=== PATIENT | female | born 1995 | race Caucasian/White ===

== ENCOUNTER 2016-02-18 18:37 | Emergency (ER) | payer OTHER ==
[2016-02-18] MEDS ORDERED: ACETAMINOPHEN TAB 500 MG TAB PO STA (19:07)
[2016-02-18] MEDS ORDERED: METOCLOPRAMIDE 5 MG/ML 2 ML VIAL IVP STA (19:08)
[2016-02-18] MEDS ORDERED: SODIUM CHLORIDE 0.9% 1,000 ML IV ONE (19:08)
--- NOTE | 2016-02-18 19:09 | ED ---
General Adult HPI - General Chief complaint: Abdominal Pain Stated complaint: , ABDOMINAL PAIN, BLEEDING Time Seen by Provider: 02/18/16 18:53 Source: patient, RN notes reviewed Mode of arrival: ambulatory Limitations: no limitations - History of Present Illness Initial comments: Patient is a 20-year-old female presents emergency room for evaluation of vaginal bleeding. Patient recently found out she was . Patient states she hasn't followed up with REFERENCE LIBRARIAN yet. Patient states last night she began lightly spotting which continued into this morning. Patient states about an hour ago a large amount of blood was found in her underwear. Patient states also been developing lower abdominal cramping. Patient denies taking anything for her symptoms. Patient denies shortness of breath, headache or dizziness. Patient states she is nauseous but denies any vomiting. Patient denies any previous pregnancies. Patient states she is afraid she's having a miscarriage. - Related Data Home Medications Medication Instructions Recorded Confirmed Anti-Nausea(Unknown Otc) 1 dose PO DAILY PRN 02/06/16 02/18/16 Previous Rx's Medication Instructions Recorded Metoclopramide HCl [Reglan] 5 mg PO BID PRN #12 tablet 02/06/16 Qdb-Lqla-Yrtgp Acid 1 each PO DAILY #100 cap 02/06/16 [-U Capsule] Allergies Allergy/AdvReac Type Severity Reaction Status Date / Time cephalexin [From Keflex] Allergy Unknown Verified 02/06/16 10:05 Review of Systems ROS Statement: Those systems with pertinent positive or pertinent negative responses have been documented in the HPI. ROS Other: All systems not noted in ROS Statement are negative. Past Medical History Past Medical History: No Reported History History of Any Multi-Drug Resistant Organisms: None Reported Past Surgical History: Ear Surgery, Tonsillectomy Past Psychological History: No Psychological Hx Reported Smoking Status: Never smoker Past Alcohol Use History: None Reported Past Drug Use History: None Reported General Exam - General Exam Comments Initial Comments: Sitting in exam room, no acute distress. Limitations: no limitations General appearance: alert, in no apparent distress Head exam: Present: atraumatic, normocephalic, normal inspection Eye exam: Present: normal appearance ENT exam: Present: normal exam Neck exam: Present: normal inspection Respiratory exam: Present: normal lung sounds bilaterally. Absent: respiratory distress Cardiovascular Exam: Present: regular rate, normal rhythm, normal heart sounds GI/Abdominal exam: Present: soft, normal bowel sounds. Absent: distended, tenderness, guarding, rebound, rigid External exam: Present: normal external exam Speculum exam: Present: vaginal bleeding (Significant amount of vaginal bleeding and a large amount of blood clots). Absent: normal speculum exam Extremities exam: Present: normal inspection Back exam: Present: normal inspection Neurological exam: Present: alert, oriented X3, CN II-XII intact, normal gait Psychiatric exam: Present: normal affect, normal mood Skin exam: Present: warm, dry, intact, normal color. Absent: rash Course Vital Signs 02/18/16 02/18/16 02/18/16 18:45 20:00 21:51 Temperature 97.2 F L Pulse Rate 61 81 78 Respiratory 20 16 16 Rate Blood Pressure 158/94 166/75 154/78 O2 Sat by Pulse 100 97 97 Oximetry 02/18/16 22:05 Temperature 98 F Pulse Rate 81 Respiratory 18 Rate Blood Pressure 155/78 O2 Sat by Pulse 98 Oximetry Medical Decision Making - Medical Decision Making Patient is a 20-year-old female since emergency room for evaluation of vaginal bleeding. Patient's serum beta hCG has decreased since last visit. Ultrasound showed no sign of pole. It was discussed with patient that she is most likely having a miscarriage. Patient states she will follow-up with REFERENCE LIBRARIAN tomorrow. Patient states she understands everything that was discussed with her. Return parameters discussed. Case discussed with Dr. Castro. - Lab Data Lab Results 02/18/16 02/18/16 02/18/16 Range/Units 19:15 19:15 21:27 HCG, Quant 686.8 mIU/mL Urine Color Red Urine Appearance Bloody H (Clear) Urine RBC >182 H (0-5) /hpf Urine WBC >182 H (0-5) /hpf Ur Squamous Epith Cells 3 (0-4) /hpf Urine Bacteria Rare H (None) /hpf Trichomonas Ag (Rapid) (Negative) Blood Type A Positive Blood Type Recheck No 02/18/16 Range/Units 21:27 HCG, Quant mIU/mL Urine Color Urine Appearance (Clear) Urine RBC (0-5) /hpf Urine WBC (0-5) /hpf Ur Squamous Epith Cells (0-4) /hpf Urine Bacteria (None) /hpf Trichomonas Ag (Rapid) Negative (Negative) Blood Type Blood Type Recheck - Radiology Data Radiology results: report reviewed, image reviewed Disposition Clinical Impression: Threatened Disposition: HOME SELF-CARE Condition: Good Instructions: Threatened Miscarriage (ED) Additional Instructions: Refrain from sexual intercourse or heavy lifting for the next 7-10 days. Take Tylenol or Motrin as needed for pain. Please follow-up with REFERENCE LIBRARIAN for reevaluation in 24-48 hours. If any new symptom arises, symptoms worsen or fever develops, return to ER as soon as possible. Referrals: Barrett Gresham DO [Primary Care Provider] - 1-2 days Keron Keane DO [Doctor of Osteopathic Medicine] - 1-2 days Time of Disposition: 21:52
[2016-02-18 19:43] LABS: Bacteria,Urine Rare /hpf; Particle Count 8140; RBC,Urine >182 /hpf (0-5); Squamous Epithelial Cell,Urine 3 /hpf (0-4); WBC,Urine >182 /hpf (0-5)
[2016-02-18 19:44] LABS: Appearance,Urine Bloody (Clear); UA Billing (MACRO vs. MICRO) MICRO
--- NOTE | 2016-02-18 21:26 | US ---
EXAMINATION TYPE: US OB <=14 wks transvag DATE OF EXAM: 02/18/2016 9:03 PM COMPARISON: NONE CLINICAL HISTORY: Heavy bleeding, pain, G1. EXAM PERFORMED: Transabdominal (TA) EXAM MEASUREMENTS: GESTATIONAL AGE / DATING Dates by LMP: (13 weeks/6 days) EDC: 08/19/2016 Dates by Current Scan: unable to determine MATERNAL ANATOMY Uterus: 10.0 x 6.1 x 5.5 cm Right Ovary: 3.2 x 2.4 x 1.8 cm Left Ovary: 2.6 x 1.6 x 1.6 cm Post CDS / Adnexa: free fluid Presence of free fluid: within endometrial and cervical canal GESTATION / SURVEY CRL: not seen MSD: not seen Yolk Sac (normal less than 6mm): not seen Heart Rate: CRL not seen IUP: No IUP seen at this time Date of LMP: 11/13/2015 Beta HcG (if available): not availble TECHNOLOGIST IMPRESSION: Anteflexed uterus, thickened endometrium with fluid and debris. No GS, CRL or YS seen. Fluid in cervical canal. Fluid in posterior cul de sac. IMPRESSION: There is thickened endometrium with some complex echoes consistent with incomplete . No adnex al mass.
[2016-02-18 22:08] VITALS: BP 155/78; PULSE 81; RESP 18; TEMP 98
== END 2016-02-18 22:08 | disposition home or self-care (01) ==
LOC: EC 18:37
DX: O20.0 Threatened abortion (principal); Z88.1 Allergy status to other antibiotic agents; Z3A.01 Less than 8 weeks gestation of pregnancy
CPT/HCPCS: 99284; 96374; 36415; 86900; 86901; 87591; 87491; 81001; 84702; 87808; 87070; 76801; J2765; 87205

== ENCOUNTER 2016-10-04 13:02 | Emergency (ER) | payer OTHER ==
[2016-10-04 13:12] VITALS: TEMP 98
[2016-10-04] MEDS ORDERED: METOCLOPRAMIDE 5 MG/ML 2 ML VIAL IVP STA (14:51)
[2016-10-04] MEDS ORDERED: SODIUM CHLORIDE 0.9% 1,000 ML IV STA (14:51)
--- NOTE | 2016-10-04 15:02 | ED ---
General Adult HPI - General Chief complaint: Syncope Stated complaint: Poss preg-syncope Time Seen by Provider: 10/04/16 14:37 Source: patient, family, RN notes reviewed Mode of arrival: ambulatory Limitations: no limitations - History of Present Illness Initial comments: Chief complaint and history of present illness this is a 21-year-old female who is approximately 10 weeks . Last menstrual cycles early July. The patient was at work which didn't feel well has syncopal episode. Denies hurting herself. She has been having nausea vomiting through the morning with this . Significant other also reports that she has near similar episode one week ago. Vomiting while kneeling at the toilet and then she seemingly passed out during this time without hurting herself. Otherwise patient denies any bleeding. She does appear pale. At this time the patient's alert and oriented. No complaints of any headache or stiff neck or neck pain. - Related Data Previous Rx's Medication Instructions Recorded Metoclopramide HCl [Reglan] 5 mg PO Q8H #5 tablet 10/04/16 Shn-Ndxj-Yrzjc Acid 1 cap PO DAILY #30 cap 10/04/16 [-U Capsule (formulary)] Allergies Allergy/AdvReac Type Severity Reaction Status Date / Time cephalexin [From Keflex] Allergy Unknown Verified 10/04/16 15:12 Review of Systems ROS Statement: Those systems with pertinent positive or pertinent negative responses have been documented in the HPI. Review of systems no visual acuity changes no headache no neck ache no chest pain she does complain of being nauseated but no vomiting at this time. No abdominal pain no back pain. No complaint of a neuro deficits. All systems are reviewed. Past medical problems significant for 1 previous miscarriage. The patient is currently approximately 10 weeks along. Patient denies any significant medical problems other than having nausea vomiting with pregnancies. Her surgeries include ear surgery ear tubes, tonsils and adenoids. Family history includes cancers, lung ovarian and breast. Patient has ALLERGIES to cephalexin. Denies smoking denies drinking. ROS Other: All systems not noted in ROS Statement are negative. Past Medical History Past Medical History: No Reported History History of Any Multi-Drug Resistant Organisms: None Reported Past Surgical History: Ear Surgery, Tonsillectomy Past Psychological History: No Psychological Hx Reported Smoking Status: Never smoker Past Alcohol Use History: None Reported Past Drug Use History: None Reported General Exam - General Exam Comments Initial Comments: General: The patient is awake and alert, in no distress, and does not appear acutely ill. Has syncopal episode at work. No seizure activity noted per witnesses. Vital signs temp 98.0 pulse 63 respiratory rate 20 pulse ox on percent room air blood pressure 118/82 Eye: Pupils are equal, round and reactive to light, extra-ocular movements are intact ; there is normal conjunctiva bilaterally. No signs of icterus. Ears, nose, mouth and throat: There are moist mucous membranes and no oral lesions. Neck: The neck is supple, there is no tenderness . Cardiovascular: There is a regular rate and rhythm. No murmur, rub or gallop is appreciated. Respiratory: Lungs are clear to auscultation, respirations are non-labored, breath sounds are equal. No wheezes, stridor, rales, or rhonchi. Gastrointestinal: Soft, non-distended, non-tender abdomen without masses or organomegaly noted. There is no rebound or guarding present. No CVA tenderness. Bowel sounds are unremarkable. Back: There is no tenderness to palpation in the midline. There is no obvious deformity. No rashes noted. Musculoskeletal: Normal ROM, no tenderness, There is no pedal edema. There is no calf tenderness or swelling. Sensation intact. Pulses equal bilaterally 2+. Neurological: CN II-XII intact, There are no obvious motor or sensory deficits. Coordination appears grossly intact. Speech is normal. No focal or lateralizing findings. Skin: Skin is warm and dry and no rashes or lesions are noted. Psychiatric: No complaint of depression. Limitations: no limitations Course Vital Signs 10/04/16 10/04/16 10/04/16 13:09 15:16 16:15 Temperature 98.0 F Pulse Rate 63 59 L 72 Respiratory 20 18 18 Rate Blood Pressure 118/82 130/85 121/58 O2 Sat by Pulse 100 100 100 Oximetry Medical Decision Making - Medical Decision Making Decision-making. The patient's white count is 12.2 hemoglobin 11.7 hematocrit of 36. Potassium is 4.1 BUN 11 creatinine 0.65 and GFR greater than 60. Glucose 75. Troponin less than 0.012. After 1 L of fluid the patient reports she is feeling much better colors better. Vital signs remained stable. The patient is not having any vaginal discharge or cramping. 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 Advised use Tylenol for discomfort. She does not drive visit is but she was reminded that no driving for 6 months after syncopal episode provided she gets cleared by her doctor. - Lab Data Result diagrams: 10/04/16 15:10 10/04/16 15:10 Lab Results 10/04/16 10/04/16 10/04/16 Range/Units 15:10 15:10 15:10 WBC 12.3 H (3.8-10.6) k/uL RBC 4.42 (3.80-5.40) m/uL Hgb 11.7 (11.4-16.0) gm/dL Hct 36.7 (34.0-46.0) % MCV 82.9 (80.0-100.0) fL MCH 26.4 (25.0-35.0) pg MCHC 31.8 (31.0-37.0) g/dL RDW 16.5 H (11.5-15.5) % Plt Count 225 (150-450) k/uL Neutrophils % 89 % Lymphocytes % 7 % Monocytes % 3 % Eosinophils % 0 % Basophils % 0 % Neutrophils # 10.9 H (1.3-7.7) k/uL Lymphocytes # 0.9 L (1.0-4.8) k/uL Monocytes # 0.3 (0-1.0) k/uL Eosinophils # 0.1 (0-0.7) k/uL Basophils # 0.0 (0-0.2) k/uL Anisocytosis Slight Sodium 134 L (137-145) mmol/L Potassium 4.1 (3.5-5.1) mmol/L Chloride 102 (98-107) mmol/L Carbon Dioxide 22 (22-30) mmol/L Anion Gap 10 mmol/L BUN 11 (7-17) mg/dL Creatinine 0.65 (0.52-1.04) mg/dL Est GFR (MDRD) Af Amer >60 (>60 ml/min/1.73 sqM) Est GFR (MDRD) Non-Af >60 (>60 ml/min/1.73 sqM) Glucose 75 (74-99) mg/dL Calcium 9.3 (8.4-10.2) mg/dL Total Bilirubin 0.4 (0.2-1.3) mg/dL AST 18 (14-36) U/L ALT 27 (9-52) U/L Alkaline Phosphatase 48 (38-126) U/L Troponin I <0.012 (0.000-0.034) ng/mL Total Protein 7.2 (6.3-8.2) g/dL Albumin 4.1 (3.5-5.0) g/dL Disposition Clinical Impression: Syncope Disposition: HOME SELF-CARE Condition: Fair Instructions: Hyperemesis Gravidarum (ED), Syncope (ED) Additional Instructions: Increase fluids, take Reglan for nausea. Follow-up with the ADMINISTRATIVE UNDERWRITER. Return emergency room if he have any lower abdominal cramping or vaginal bleeding. Prescriptions: Metoclopramide HCl [Reglan] 5 mg PO Q8H #5 tablet Ycg-Ahkg-Wxfgy Acid [-U Capsule (formulary)] 1 cap PO DAILY # 30 cap Referrals: None,Stated [Primary Care Provider] - 1-2 days Time of Disposition: 17:16
[2016-10-04 15:20] VITALS: RESP 18
[2016-10-04 15:22] LABS: Anisocytosis Slight; Basophils % (A) 0 %; CH 27.3; CHCM 33.1; Eosinophils # (A) 0.1 k/uL (0-0.7); Eosinophils % (A) 0 %; HCT 36.7 % (34.0-46.0); HDW 2.57; HGB 11.7 gm/dL (11.4-16.0); Luc # (Auto) 0.07; Luc % (Auto) 1; Lymphocytes # (A) 0.9 k/uL (1.0-4.8); Lymphocytes % (A) 7 %; MCH 26.4 pg (25.0-35.0); MCHC 31.8 g/dL (31.0-37.0); MCV 82.9 fL (80.0-100.0); Mean Platelet Volume 8.2; Monocytes # (A) 0.3 k/uL (0-1.0); Monocytes % (A) 3 %; Neutrophils # (A) 10.9 k/uL (1.3-7.7); Neutrophils % (A) 89 %; RBC 4.42 m/uL (3.80-5.40); RDW 16.5 % (11.5-15.5); WBC 12.3 k/uL (3.8-10.6); WBC (Perox) 12.39
[2016-10-04 15:44] LABS: ALT 27 U/L (9-52); AST 18 U/L (14-36); Alkaline Phosphatase 48 U/L (38-126); Anion Gap 10 mmol/L; Blood Urea Nitrogen 11 mg/dL (7-17); Calcium 9.3 mg/dL (8.4-10.2); Carbon Dioxide 22 mmol/L (22-30); Chloride 102 mmol/L (98-107); Glucose 75 mg/dL (74-99); Non-African American GFR(MDRD) >60 (>60 ml/min/1.73 sqM); Potassium 4.1 mmol/L (3.5-5.1); Sodium 134 mmol/L (137-145); Total Bilirubin 0.4 mg/dL (0.2-1.3); Total Protein 7.2 g/dL (6.3-8.2)
[2016-10-04 17:32] VITALS: BP 131/67; PULSE 73
== END 2016-10-04 17:31 | disposition home or self-care (01) ==
LOC: EC 13:02
DX: O99.89 Other specified diseases and conditions complicating pregnancy, childbirth and the puerperium (principal); R55 Syncope and collapse; O21.0 Mild hyperemesis gravidarum; Z3A.10 10 weeks gestation of pregnancy; Z88.1 Allergy status to other antibiotic agents
CPT/HCPCS: 36415; 80053; 84484; 85025; 99284; 96374; 96361 ×2; J2765

== ENCOUNTER 2017-04-29 12:04 | Inpatient (IN) | payer MEDICAID, OTHER ==
[2017-04-29] MEDS ORDERED: TERBUTALINE 1 MG/ML VIAL SQ PRN (12:17)
[2017-04-29] MEDS ORDERED: LIDOCAINE 1% (PF) 10 MG/ML (30 ML SDV) SQ PRN (12:17)
[2017-04-29] MEDS ORDERED: METHYLERGONOVINE 0.2 MG/ML 1 ML AMP IM PRN (12:17)
[2017-04-29] MEDS ORDERED: OXYTOCIN 10 UNIT/ML 1 ML VIAL IM PRN (12:17)
[2017-04-29] MEDS ORDERED: CARBOPROST TROMETHAMINE 250 MCG/ML 1 ML AMP IM PRN (12:17)
[2017-04-29] MEDS ORDERED: LACTATED RINGERS 1,000 ML IV SCH ×2 (12:30)
[2017-04-29] MEDS ORDERED: OXYTOCIN 20 UNITS/1000 ML NS 1,000 ML IV SCH ×2 (12:30→14:42)
--- NOTE | 2017-04-29 12:32 | P.HPOB ---
History of Present Illness H&P Date: 04/29/17 Chief Complaint: Contractions This is a 21-year-old female 2 para 0 with an estimated date of confinement of 05/01/2017, estimated gestational age of 39-5/7 weeks, who presents to labor and delivery with complaints of contractions since yesterday evening. They are stronger today and she has been noticing more mucous discharge today. She was seen in the office for her scheduled appointment and was found to be 6-1/2-7 cm and sent over for active labor. She admits to good movement. She denies any rupture of membranes. course has been complicated by a grade 3 placenta and she has been getting twice weekly nonstress test for this. labs: GC/Chlamydia-negative Hepatitis B surface antigen-nonreactive HIV-nonreactive Rubella-immune Syphilis antibody-negative nonreactive Toxoplasma-negative Random glucose-72 Hemoglobin-10.2 Blood type-A+ Antibody screen-negative Obstetrical ultrasound-normal anatomy One hour Glucola-86 Group B B Streptococcus-negative Obstetrical history: . History of 1 miscarriage. Gynecologic history: No history of sexually transmitted diseases. Social history: She is single and works part-time at [employer]. Review of Systems Constitutional: Denies chills, Denies fever Eyes: denies blurred vision, denies pain Ears, nose, mouth and throat: Denies headache, Denies sore throat Cardiovascular: Denies chest pain, Denies shortness of breath Respiratory: Denies cough Gastrointestinal: Reports abdominal pain (Contractions) Genitourinary: Reports pelvic pain, Reports Musculoskeletal: Reports low back pain Integumentary: Denies pruritus Neurological: Denies numbness, Denies weakness Past Medical History Past Medical History: No Reported History History of Any Multi-Drug Resistant Organisms: None Reported Past Surgical History: Adenoidectomy, Ear Surgery (Tubes in ears), Tonsillectomy Past Psychological History: No Psychological Hx Reported Smoking Status: Never smoker Past Alcohol Use History: None Reported Past Drug Use History: None Reported Medications and Allergies Home Medications Medication Instructions Recorded Confirmed Type RX: Yxi-Yccj-Yrggp Acid 1 cap PO DAILY #30 cap 10/04/16 04/29/17 Rx [-U Capsule (formulary)] Allergies Allergy/AdvReac Type Severity Reaction Status Date / Time cephalexin [From Keflex] Allergy Unknown Verified 04/29/17 12:16 Exam Osteopathic Statement: *. No significant issues noted on an osteopathic structural exam other than those noted in the History and Physical/Consult. - Vital Signs Vital signs: Intake and Output 04/28/17 04/29/17 04/29/17 22:59 06:59 14:59 Other: Weight 101.605 kg Patient Weight 04/30/17 06:59 Weight 101.605 kg HEENT: Within normal limits Heart: Regular rate and rhythm Lungs: Clear to auscultation bilaterally Abdomen: Cervix: 6-1/2-7 cm/80%/-1 station heart tones: Reactive Contractions: Every 4-5 minutes Extremities: Negative Homans Assessment and Plan (1) 39 weeks gestation of Current Visit: Yes Status: Acute Code(s): Z3A.39 - 39 WEEKS GESTATION OF SNOMED Code(s): 07637910 Plan: Admission for active labor. Epidural anesthesia. Expectant management.
[2017-04-29] MEDS ORDERED: fentaNYL (PF) 50 MCG/ML 5 ML AMP ONE (12:40)
[2017-04-29] MEDS ORDERED: BUPIVACAINE (PF) 0.25% 30 ML VIAL ONE (12:40)
[2017-04-29] MEDS ORDERED: SODIUM CHLORIDE 0.9% 100 ML BAG ONE (12:40)
[2017-04-29 12:53] LABS: Basophils % (A) 0 %; Eosinophils % (A) 0 %; HCT 32.7 % (34.0-46.0); HGB 10.6 gm/dL (11.4-16.0); Lymphocytes # (A) 1.1 k/uL (1.0-4.8); Lymphocytes % (A) 12 %; MCH 24.8 pg (25.0-35.0); MCHC 32.3 g/dL (31.0-37.0); MCV 76.9 fL (80.0-100.0); Microcytosis Slight; Monocytes # (A) 0.2 k/uL (0-1.0); Monocytes % (A) 2 %; Neutrophils # (A) 7.7 k/uL (1.3-7.7); Neutrophils % (A) 85 %; Platelet Count 193 k/uL (150-450); RBC 4.25 m/uL (3.80-5.40); RDW 15.9 % (11.5-15.5); WBC 9.1 k/uL (3.8-10.6)
[2017-04-29] MEDS ORDERED: BUPIVACAINE (PF) 0.25% 25 ML, fentaNYL (PF) 200 MCG in SODIUM CHLORIDE 0.9% 71 ML EPIDURAL ONE (13:24)
[2017-04-29 13:58] VITALS: BMI 35.0
[2017-04-29 14:16] LABS: ALT 15 U/L (9-52); AST 15 U/L (14-36); Blood Urea Nitrogen 10 mg/dL (7-17); LDH 396 U/L (313-618); Uric Acid 4.6 mg/dL (3.7-7.4)
[2017-04-29 14:18] LABS: Appearance,Urine Clear (Clear); Bilirubin,Urine Negative (Negative); Blood,Urine Negative (Negative); Color,Urine Yellow; Glucose,Urine (UA) Negative (Negative); Ketones,Urine Negative (Negative); Leukocyte Esterase,Urine Negative (Negative); Nitrite,Urine Negative (Negative); PH, Urine 7.5 (5.0-8.0); Protein,Urine Trace (Negative); Specific Gravity,Urine 1.021 (1.001-1.035); Urobilinogen,Urine <2.0 mg/dL (<2.0)
[2017-04-29] MEDS ORDERED: LANOLIN CREAM 5 GM TUBE TOPICAL PRN (14:42)
[2017-04-29] MEDS ORDERED: HYDROCORTISONE 2.5% RECTAL CREAM 30 GM TUBE RECTAL PRN (14:42)
[2017-04-29] MEDS ORDERED: WITCH HAZEL 1 EACH MED..PAD TOPICAL PRN (14:42)
[2017-04-29] MEDS ORDERED: diphenhydrAMINE 25 MG CAP PO PRN (14:42)
[2017-04-29] MEDS ORDERED: diphenhydrAMINE 50 MG/ML 1 ML VIAL IVP PRN ×2 (14:42)
[2017-04-29] MEDS ORDERED: ZOLPIDEM 5 MG TAB PO PRN (14:42)
[2017-04-29] MEDS ORDERED: BENZOCAINE/MENTHOL SPRAY 1 GM/SPRAY AEROSOL TOPICAL PRN (14:42)
[2017-04-29] MEDS ORDERED: diphenhydrAMINE 50 MG CAP PO PRN (14:42)
[2017-04-29] MEDS ORDERED: SIMETHICONE 80 MG CHEWABLE PO PRN (14:42)
[2017-04-29] MEDS ORDERED: IBUPROFEN 600 MG TAB PO PRN (14:42)
[2017-04-29] MEDS ORDERED: ACETAMINOPHEN TAB 325 MG TAB PO PRN (14:42)
--- NOTE | 2017-04-29 16:39 | P.PROBDLV ---
Vaginal Delivery Note - . Vaginal Delivery Note: Normal spontaneous vaginal delivery viable female infant Apgars 8 and 9 delivery time was 1425 hrs. Please see admission history and physical per Dr. Brownlee. In summary this is a 21 -year-old 2 para 0 female 39-5/7 weeks' gestation who was seen in the office this morning and found to have regular painful contractions and 6-7 cm dilated. Patient was admitted to labor and delivery and had artificial rupture membranes for clear fluid. She did receive an epidural for pain control. Patient then progresses to complete pushes the head to the perineum. The posterior perineum was then supported we have controlled delivery of infant's head over the intact perineum. Mouth and nares are bulb suctioned. There is no evidence of a nuchal cord. With gentle downward traction we then have deliver the anterior posterior shoulders and rest this infant's body. This is a vigorous viable female infant Apgars are 8 and 9 delivery time is 1425 hrs. After delivery of the the umbilical cord is allowed to finish pulsating then clamped and cut. The placenta is spontaneously delivered intact. It appears to be trivascular. Estimated blood loss is 150 mL. Inspection of perineum shows a first-degree perineal laceration is repaired with 3-0 Vicryl usual fashion. There is also a superficial labial laceration which requires no repair. All counts are correct 3. There are no complications. Infant and mother are stable delivery room. Please note patient did have some elevated blood pressures on admission and in labor and preeclampsia labs were negative.
[2017-04-29] MEDS ORDERED: LABETALOL 100 MG TAB PO PRN (19:42)
[2017-04-29] MEDS: SENNOSIDES-DOCUSATE SODIUM 1 EACH TAB PO SCH (20:11)
--- NOTE | 2017-04-30 08:58 | P.DS ---
Providers Date of admission: 04/29/17 12:04 Expected date of discharge: 04/30/17 Attending physician: Kelsy Brownlee Primary care physician: Stated None - Discharge Diagnosis(es) (1) 39 weeks gestation of Current Visit: Yes Status: Acute Hospital Course: This is a 21-year-old female 2 para 0 at 39-5/7 weeks who presented in active labor from the office. She initially was found to be 7 cm and did receive oxytocin augmentation of labor along with epidural anesthesia. She delivered vaginally a viable female on 04/29/2017 with scores of 8 at 1 minute and 9 at 5 minutes and weight of 6 lbs. 12 oz. Her course has been essentially uncomplicated. Lochia is decreasing. She is working on breast-feeding. Vital signs are stable. Abdomen is soft with fundus firm and nontender. Extremities show negative Homans. Impression is status post vaginal delivery day #1. Plan is to discharge home either later today or tomorrow morning. Patient is undecided at this time. She will be given a prescription for ibuprofen and a breast pump prescription. Routine instructions are given. She is advised to follow up in the office in 6 weeks for a check. She is advised to call the office if she has any further questions or concerns prior to her appointment time. Procedures: Oxytocin augmentation of labor Spontaneous vaginal delivery of a viable female on 04/29/2017 Patient Condition at Discharge: Stable Plan - Discharge Summary New Discharge Prescriptions: No Action Khk-[id number]-Cvnmc Acid [-U Capsule (formulary)] 1 cap PO DAILY #30 cap Discharge Medication List Lqi-Zele-Uhwll Acid [-U Capsule (formulary)] 1 cap PO DAILY # 30 cap 10/04/16 [Rx] Follow up Appointment(s)/Referral(s): Kelsy Brownlee DO [Doctor of Osteopathic Medicine] - 6 Weeks Activity/Diet/Wound Care/Special Instructions: Instructions 1. Do not begin any exercise program for 3 weeks. 2. Do not resume sexual relations for 3 weeks or longer if uncomfortable. 3. You may take tub baths or showers at any time. 4. You may use tampons if desired after 3 weeks. 5. Keep the area of episiotomy (stitches) clean and dry. 6. If you are not nursing, wear a good fitting, supportive bra during the day and limit fluid intake for at least 1 week to prevent breast engorgement. 7. Call the office, [phone], within the next week to make appointment for your 6 week checkup if it has not already been made. 8. Report any of the following occurrences to the doctor promptly: a. Heavy, excessive bleeding b. Chills, fever c. Burning or frequency of urination d. Pain or redness and breasts if nursing e. Increasing pain or swelling in episiotomy (stitches). In addition to the above instructions, the following additional should be followed: 1. No heavy lifting or straining (exercising) until after 6 week checkup. 2. Keep abdominal incision clean and dry: You may wear a dressing if more comfortable. 3. Make office appointment for 10 days after going home or as instructed by her doctor. Discharge Disposition: HOME SELF-CARE
[2017-04-30] MEDS: SENNOSIDES-DOCUSATE SODIUM 1 EACH TAB PO SCH (10:26)
[2017-04-30 11:04] VITALS: RESP 18
[2017-04-30 11:07] LABS: Anisocytosis Slight; Basophils % (A) 0 %; Eosinophils % (A) 1 %; HCT 28.1 % (34.0-46.0); Hypochromasia Slight; Lymphocytes # (A) 1.4 k/uL (1.0-4.8); Lymphocytes % (A) 17 %; MCH 24.4 pg (25.0-35.0); MCV 78.9 fL (80.0-100.0); Mean Platelet Volume 8.6; Microcytosis Slight; Monocytes # (A) 0.4 k/uL (0-1.0); Monocytes % (A) 5 %; Neutrophils # (A) 6.3 k/uL (1.3-7.7); Neutrophils % (A) 77 %; Platelet Count 167 k/uL (150-450); RBC 3.56 m/uL (3.80-5.40); RDW 16.3 % (11.5-15.5); WBC 8.3 k/uL (3.8-10.6)
[2017-04-30 11:10] LABS: HGB 8.7 gm/dL (11.4-16.0)
[2017-04-30 16:21] VITALS: BP 142/75; PULSE 79; TEMP 98.7
== END 2017-04-30 16:40 | disposition home or self-care (01) | DRG 775 ==
LOC: 4FBP 12:04
PROVIDERS: ADMIT Obstetrics & Gynecology; ATTEND Obstetrics & Gynecology
PROC: 10E0XZZ Delivery of Products of Conception, External Approach (ICD-10-PCS; principal; 2017-04-29)
PROC: 0HQ9XZZ Repair Perineum Skin, External Approach (ICD-10-PCS; 2017-04-29)
PROC: 00HU33Z Insertion of Infusion Device into Spinal Canal, Percutaneous Approach (ICD-10-PCS; 2017-04-29)
PROC: 3E0R3BZ Introduction of Anesthetic Agent into Spinal Canal, Percutaneous Approach (ICD-10-PCS; 2017-04-29)
DX: O43.93 Unspecified placental disorder, third trimester (principal); O70.0 First degree perineal laceration during delivery; Z37.0 Single live birth; Z3A.39 39 weeks gestation of pregnancy; Z79.899 Other long term (current) drug therapy; Z88.4 Allergy status to anesthetic agent
CPT/HCPCS: 81003; 82565; 83615; 84450; 84460; 84520; 84550; 85025; 88307

== ENCOUNTER 2018-05-02 08:54 | Emergency (ER) | payer MEDICAID, OTHER ==
[2018-05-02 08:59] VITALS: RESP 18
[2018-05-02] MEDS ORDERED: SODIUM CHLORIDE 0.9% 1,000 ML IV STA (09:11)
--- NOTE | 2018-05-02 09:15 | ED ---
Abdominal Pain HPI - General Chief Complaint: Abdominal Pain Stated Complaint: Abd pain Time Seen by Provider: 05/02/18 09:01 Source: patient, RN notes reviewed Mode of arrival: ambulatory Limitations: no limitations - History of Present Illness Initial Comments: 22-year-old female presents emergency Department with chief complaint of intermittent lower abdominal pain. Patient states it started this morning states that she felt she does, twisted wrong. Patient states that she did have a mild what which has been progressive symptoms. Patient states pain is very minimal. She has dysuria no hematuria. Denies any chance . Patient also states that she recently started control which may be contrary to her symptoms. Patient denies any flank pain, nausea, vomiting, diarrhea, constipation. Patient states that she's had no prior abdominal surgeries. - Related Data Home Medications Medication Instructions Recorded Confirmed Norgestimate-Ethinyl Estradiol 1 tab PO HS 05/02/18 05/02/18 [Ortho Tri-Cyclen 28 Tablet] Previous Rx's Medication Instructions Recorded Nitrofurantoin Monohyd/M-Cryst 100 mg PO Q12HR #10 cap 05/02/18 [Macrobid] Allergies Allergy/AdvReac Type Severity Reaction Status Date / Time cephalexin [From Keflex] Allergy Unknown Verified 05/02/18 09:22 Review of Systems ROS Statement: Those systems with pertinent positive or pertinent negative responses have been documented in the HPI. ROS Other: All systems not noted in ROS Statement are negative. Past Medical History Past Medical History: No Reported History History of Any Multi-Drug Resistant Organisms: None Reported Past Surgical History: Adenoidectomy, Ear Surgery, Tonsillectomy Past Anesthesia/Blood Transfusion Reactions: No Reported Reaction Past Psychological History: No Psychological Hx Reported Smoking Status: Never smoker Past Alcohol Use History: None Reported Past Drug Use History: None Reported - Past Family History Mother Family Medical History: No Reported History Father Family Medical History: Diabetes Mellitus General Exam Limitations: no limitations General appearance: alert, in no apparent distress Head exam: Present: atraumatic, normocephalic, normal inspection Eye exam: Present: normal appearance, PERRL, EOMI. Absent: scleral icterus, conjunctival injection, periorbital swelling Neck exam: Present: normal inspection, full ROM. Absent: tenderness, meningismus, lymphadenopathy Respiratory exam: Present: normal lung sounds bilaterally. Absent: respiratory distress, wheezes, rales, rhonchi, stridor Cardiovascular Exam: Present: regular rate, normal rhythm, normal heart sounds. Absent: systolic murmur, diastolic murmur, rubs, gallop, clicks GI/Abdominal exam: Present: soft, tenderness (Minimal suprapubic), normal bowel sounds. Absent: distended, guarding, rebound, rigid Back exam: Absent: CVA tenderness (R), CVA tenderness (L) Skin exam: Present: warm, dry, intact, normal color. Absent: rash Course Vital Signs 05/02/18 08:55 Temperature 98.2 F Pulse Rate 70 Respiratory 18 Rate Blood Pressure 124/79 O2 Sat by Pulse 100 Oximetry Medical Decision Making - Medical Decision Making 22-year-old female presents emergency Department with chief complaint of lower abdominal pain. She did have mild dysuria. Patient has a contaminated urine sample though she has symptomatic. Patient will be given a short course and bikes pending culture. Return parameters were discussed. - Lab Data Result diagrams: 05/02/18 09:39 05/02/18 09:39 Lab Results 05/02/18 05/02/18 05/02/18 Range/Units 09:39 09:39 09:39 WBC 6.2 (3.8-10.6) k/uL RBC 4.43 (3.80-5.40) m/uL Hgb 11.8 (11.4-16.0) gm/dL Hct 37.3 (34.0-46.0) % MCV 84.2 (80.0-100.0) fL MCH 26.6 (25.0-35.0) pg MCHC 31.6 (31.0-37.0) g/dL RDW 14.8 (11.5-15.5) % Plt Count 164 (150-450) k/uL Neutrophils % 78 % Lymphocytes % 15 % Monocytes % 3 % Eosinophils % 2 % Basophils % 1 % Neutrophils # 4.8 (1.3-7.7) k/uL Lymphocytes # 0.9 L (1.0-4.8) k/uL Monocytes # 0.2 (0-1.0) k/uL Eosinophils # 0.1 (0-0.7) k/uL Basophils # 0.0 (0-0.2) k/uL Sodium 139 (137-145) mmol/L Potassium 4.3 (3.5-5.1) mmol/L Chloride 109 H (98-107) mmol/L Carbon Dioxide 25 (22-30) mmol/L Anion Gap 5 mmol/L BUN 12 (7-17) mg/dL Creatinine 0.69 (0.52-1.04) mg/dL Est GFR (CKD-EPI)AfAm >90 (>60 ml/min/1.73 sqM) Est GFR (CKD-EPI)NonAf >90 (>60 ml/min/1.73 sqM) Glucose 87 (74-99) mg/dL Calcium 9.0 (8.4-10.2) mg/dL Total Bilirubin 0.4 (0.2-1.3) mg/dL AST 14 (14-36) U/L ALT 28 (9-52) U/L Alkaline Phosphatase 58 (38-126) U/L Total Protein 7.0 (6.3-8.2) g/dL Albumin 3.9 (3.5-5.0) g/dL Lipase 43 (23-300) U/L Urine Color Urine Appearance (Clear) Urine pH (5.0-8.0) Ur Specific [place] (1.001-1.035) Urine Protein (Negative) Urine Glucose (UA) (Negative) Urine Ketones (Negative) Urine Blood (Negative) Urine Nitrite (Negative) Urine Bilirubin (Negative) Urine Urobilinogen (<2.0) mg/dL Ur Leukocyte Esterase (Negative) Urine WBC (0-5) /hpf Ur Squamous Epith Cells (0-4) /hpf Amorphous Sediment (None) /hpf Urine Bacteria (None) /hpf Urine Mucus (None) /hpf Urine HCG, Qual Not Detected (Not Detectd) 05/02/18 Range/Units 09:39 WBC (3.8-10.6) k/uL RBC (3.80-5.40) m/uL Hgb (11.4-16.0) gm/dL Hct (34.0-46.0) % MCV (80.0-100.0) fL MCH (25.0-35.0) pg MCHC (31.0-37.0) g/dL RDW (11.5-15.5) % Plt Count (150-450) k/uL Neutrophils % % Lymphocytes % % Monocytes % % Eosinophils % % Basophils % % Neutrophils # (1.3-7.7) k/uL Lymphocytes # (1.0-4.8) k/uL Monocytes # (0-1.0) k/uL Eosinophils # (0-0.7) k/uL Basophils # (0-0.2) k/uL Sodium (137-145) mmol/L Potassium (3.5-5.1) mmol/L Chloride (98-107) mmol/L Carbon Dioxide (22-30) mmol/L Anion Gap mmol/L BUN (7-17) mg/dL Creatinine (0.52-1.04) mg/dL Est GFR (CKD-EPI)AfAm (>60 ml/min/1.73 sqM) Est GFR (CKD-EPI)NonAf (>60 ml/min/1.73 sqM) Glucose (74-99) mg/dL Calcium (8.4-10.2) mg/dL Total Bilirubin (0.2-1.3) mg/dL AST (14-36) U/L ALT (9-52) U/L Alkaline Phosphatase (38-126) U/L Total Protein (6.3-8.2) g/dL Albumin (3.5-5.0) g/dL Lipase (23-300) U/L Urine Color Light Yellow Urine Appearance Cloudy H (Clear) Urine pH 5.0 (5.0-8.0) Ur Specific [place] 1.007 (1.001-1.035) Urine Protein Negative (Negative) Urine Glucose (UA) Negative (Negative) Urine Ketones Negative (Negative) Urine Blood Negative (Negative) Urine Nitrite Negative (Negative) Urine Bilirubin Negative (Negative) Urine Urobilinogen <2.0 (<2.0) mg/dL Ur Leukocyte Esterase Large H (Negative) Urine WBC 17 H (0-5) /hpf Ur Squamous Epith Cells 23 H (0-4) /hpf Amorphous Sediment Rare H (None) /hpf Urine Bacteria Rare H (None) /hpf Urine Mucus Rare H (None) /hpf Urine HCG, Qual (Not Detectd) Disposition Clinical Impression: Abdominal pain, UTI (urinary tract infection) Disposition: HOME SELF-CARE Condition: Stable Instructions (If sedation given, give patient instructions): Abdominal Pain (ED) Additional Instructions: Please return to the Emergency Department if symptoms worsen or any other concerns. Prescriptions: Nitrofurantoin Monohyd/M-Cryst [Macrobid] 100 mg PO Q12HR #10 cap Is patient prescribed a controlled substance at d/c from ED?: No Referrals: None,Stated [Primary Care Provider] - 1-2 days Time of Disposition: 10:28
[2018-05-02 09:54] LABS: Basophils % (A) 1 %; Eosinophils # (A) 0.1 k/uL (0-0.7); Eosinophils % (A) 2 %; HCT 37.3 % (34.0-46.0); HGB 11.8 gm/dL (11.4-16.0); Lymphocytes # (A) 0.9 k/uL (1.0-4.8); Lymphocytes % (A) 15 %; MCH 26.6 pg (25.0-35.0); MCHC 31.6 g/dL (31.0-37.0); MCV 84.2 fL (80.0-100.0); Mean Platelet Volume 8.9; Monocytes # (A) 0.2 k/uL (0-1.0); Monocytes % (A) 3 %; Neutrophils # (A) 4.8 k/uL (1.3-7.7); Neutrophils % (A) 78 %; Platelet Count 164 k/uL (150-450); RBC 4.43 m/uL (3.80-5.40); RDW 14.8 % (11.5-15.5); WBC 6.2 k/uL (3.8-10.6)
[2018-05-02 09:59] LABS: Amorphous Sediment,Urine Rare /hpf; Appearance,Urine Cloudy (Clear); Bacteria,Urine Rare /hpf; Bilirubin,Urine Negative (Negative); Blood,Urine Negative (Negative); Color,Urine Light Yellow; Glucose,Urine (UA) Negative (Negative); Ketones,Urine Negative (Negative); Leukocyte Esterase,Urine Large (Negative); Mucus,Urine Rare /hpf; Nitrite,Urine Negative (Negative); Protein,Urine Negative (Negative); Specific Gravity,Urine 1.007 (1.001-1.035); Squamous Epithelial Cell,Urine 23 /hpf (0-4); Urobilinogen,Urine <2.0 mg/dL (<2.0)
[2018-05-02 10:03] LABS: ALT 28 U/L (9-52); AST 14 U/L (14-36); Albumin 3.9 g/dL (3.5-5.0); Alkaline Phosphatase 58 U/L (38-126); Anion Gap 5 mmol/L; Blood Urea Nitrogen 12 mg/dL (7-17); Carbon Dioxide 25 mmol/L (22-30); Chloride 109 mmol/L (98-107); Glucose 87 mg/dL (74-99); Lipase 43 U/L (23-300); Potassium 4.3 mmol/L (3.5-5.1); Sodium 139 mmol/L (137-145); Total Bilirubin 0.4 mg/dL (0.2-1.3)
[2018-05-02 10:46] VITALS: BP 122/73; PULSE 72; TEMP 98.4
== END 2018-05-02 10:46 | disposition home or self-care (01) ==
LOC: EC 08:54
DX: N39.0 Urinary tract infection, site not specified (principal); Z88.1 Allergy status to other antibiotic agents; Z79.3 Long term (current) use of hormonal contraceptives
CPT/HCPCS: 36415; 80053; 81001; 81025; 83690; 85025; 87086; 96360; 99284